=== PATIENT | female | born 1980 | race Caucasian/White ===

== ENCOUNTER 2016-10-12 13:13 | Emergency (ER) | payer OTHER ==
[2016-10-12 13:34] VITALS: BP 144/75
== END 2016-10-12 16:17 | disposition home or self-care (01) ==
LOC: ED 13:13
DX: B34.9 Viral infection, unspecified (principal); E23.2 Diabetes insipidus

== ENCOUNTER 2018-10-19 23:27 | Emergency (ER) | payer OTHER ==
[~2018-10-19] VITALS: Ht 154.9 cm; Wt 73.0 kg
[2018-10-19 23:43] VITALS: BP 129/80; Ht 154.9 cm; Wt 73.0 kg
== END 2018-10-19 23:53 | disposition left against medical advice (07) ==
LOC: ED 23:27
DX: Z53.21 Procedure and treatment not carried out due to patient leaving prior to being seen by health care provider (principal)